=== PATIENT | female | born 1960 | race Caucasian/White ===

== ENCOUNTER 2016-10-13 17:43 | Emergency (ER) | payer OTHER ==
[~2016-10-13] VITALS: Ht 160 cm; Wt 114.8 kg
--- NOTE | 2016-10-13 17:55 | ED HEADACHE COMPLAINT ---
History of Present Illness General Chief Complaint: Headache Stated Complaint: MANN Source: patient, EMS Exam Limitations: no limitations Vital Signs & Intake/Output Vital Signs & Intake/Output Vital Signs Date Time Temp Pulse Resp B/P B/P Pulse O2 O2 Flow FiO2 Mean Ox Delivery Rate 10/13 2013 98.6 74 20 136/64 96 Nasal 2.0L Cannula 10/13 1900 78 139/76 10/13 1800 94 Room Air 10/13 1744 98.8 90 18 119/75 96 Room Air Allergies Coded Allergies: No Known Allergies (10/13/16) Reconcile Medications Amoxicillin/Potassium Clav (Augmentin 875-125 Tablet) 875 MG-125 MG TABLET 1 TAB PO BID INFECTION Amoxicillin/Potassium Clav (Augmentin 875-125 Tablet) 875 MG-125 MG TABLET 1 TAB PO BID INFECTION Carbamazepine 100 MG TAB.CHEW 1 TAB PO BID TIC DISORDER TAKE TWICE A DAY AND INCREASE SLOWLY BY 100 UNTIL DOSE OF 400 TWICE A DAY Carbamazepine 100 MG TAB.CHEW 1 TAB PO BID TRIGEMMINAL NEURALGIA START 100 MG TWICE A DAY INCREASE BY 100 EVERY FEW DAYS UNTIL YOU REACH 400 MG TWICE A DAY Diazepam (Valium) 5 MG TABLET 1 TAB PO BIDP PRN SPASM DO NOT DRIVE WITH THIS MEDICATION Lisinopril 5 MG TABLET 1 TAB PO DAILY ESSENTIAL TREMORS (Reported) Metformin HCl 500 MG TABLET 1 TAB PO DAILY MILD DM (Reported) Triage Note: 55 Y/O FEMALE COMES FROM HOME WITH C/O MANN AND STABBING (ICE PICK) PAIN TO RT EYE RAD TO BACK OF HEAD LASTING FOR ABOUT 30SEC TO A MINUTE. PT STS SHE HAD A SIMILAR EPISODE ABOUT LAST NOVEMBER AND SINCE TUESDAY SHE HAS BEEN EXPERIENCING INTERMITTENT SHARP STABBING PAIN, NO OTHER COMPLAINTS AND MD PRIMO AT BEDSIDE TO [facility] PT Triage Nurses Notes Reviewed? yes Onset: Abrupt Duration: SINCE 4 PM Timing: multiple episodes today Quality/Severity: severe, sharp Severity Numbers: 10 Head Injury Location: RIGHT FRONTAL No Modifying Factors: none HPI: This is a 55 year old female who presents via EMS from home for severe, sharp, episodic right sided eye pain radiating to the back of the neck. Symptoms started at 4 pm. She has had 9 episodes today. Symptoms last a few seconds and are very sharp and piercing like an ice pick through the eye. No visual changes or confusion. No difficulty speaking, swallowing. No extremity weakness. Past History Travel History Traveled to [place] past 21 day No Medical History Any Pertinent Medical History? see below for history Neurological: ESSENTIAL TREMOR Surgical History Surgical History: non-contributory Family History Hx Contributory? No Review of Systems Review of Systems Constitutional: Denies: chills, fever. Eyes: Reports: pain, photophobia. Ears, Nose, Throat, Mouth: Reports: mouth pain. Denies: ear pain, nose pain. Respiratory: Denies: cough, short of breath, sputum production. Cardiovascular: Denies: chest pain. Gastrointestinal/Abdominal: Denies: abdominal pain. Genitourinary: Denies: discharge, dysuria. Musculoskeletal: Denies: back pain. Skin: Reports: no symptoms. Neurological/Psychological: Reports: ataxia. Hematologic/Endocrine: Denies: bruising, bleeding. Endocrine: Reports: no symptoms. Immunologic/Allergic: Denies: splenectomy. All Other Systems: Reviewed and Negative Physical Exam Physical Exam General Appearance: well developed/nourished, alert, awake Head: atraumatic, normal appearance Eyes: Bilateral: normal appearance, PERRL, EOMI. Ears, Nose, Throat: normal pharynx, normal ENT inspection, hearing grossly normal Neck: normal inspection, supple, full range of motion Respiratory: normal breath sounds, chest non-tender, no respiratory distress Cardiovascular: regular rate/rhythm Gastrointestinal: soft, non-tender, obese Back: normal inspection, normal range of motion Extremities: normal inspection, normal range of motion, no edema Psychiatric: awake, alert, oriented x 3 Cranial Nerves: normal hearing, normal speech, PERRL Coordination/Gait: normal finger to nose Motor/Sensory: no motor/sensory deficits Skin: intact, normal color, warm/dry Core Measures Severe Sepsis Present: No Septic Shock Present: No Progress Differential Diagnosis: cluster MANN, IC mass/tumor, intracranial Hem., subarach. Hem., temporal arteritis, TRIGEMMINAL NEURALGIA Plan of Care: Orders Procedure Date/time Status PARTIAL THROMBOPLASTIN TIME 10/13 1752 Complete PROTHROMBIN TIME 10/13 1752 Complete COMPREHENSIVE METABOLIC PANEL 10/13 1752 Complete CBC WITHOUT DIFFERENTIAL 10/13 1752 Complete EKG 10/13 1752 Active Laboratory Tests 10/13/16 1824: Anion Gap 10, Estimated GFR > 60, BUN/Creatinine Ratio 20.0, Glucose 154 H, Calcium 9.6, Total Bilirubin 0.4, AST 20, ALT 32, Alkaline Phosphatase 72, Total Protein 7.7, Albumin 4.2, Globulin 3.5, Albumin/Globulin Ratio 1.2, PT 10.2, INR 0.97, APTT 25, CBC w Diff NO MAN DIFF REQ, RBC 4.83, MCV 94.2, MCH 31.9 H, RDW 14.2, MPV 7.5, Gran % 62.6, Lymphocytes % 26.1, Monocytes % 6.9, Eosinophils % 3.6, Basophils % 0.8, Absolute Granulocytes 5.5, Absolute Lymphocytes 2.3, Absolute Monocytes 0.6, Absolute Eosinophils 0.3, Absolute Basophils 0.1, PUBS MCHC 33.9 after iv morphine and valium, patient only had a few episodes and then they stopped. Work up including head ct angiogram is negative for aneurysm/mass/ bleed. It does however show extensive sinus disease on the left side with dental disease. It is on the opposite side but may also be contributing. Abx prescribed as well as carbamazepine. Dental and neuro follow up given. (PRIMO JAMA,LISSETTE) Diagnostic Imaging: Viewed by Me: CT Scan. Discussed w/RAD: CT Scan. Radiology Impression: PATIENT: DANIELA PATRICIO PRESENT AGE: 55 PATIENT ACCOUNT NO: [id number] : 59 LOCATION: [facility] ORDERING PHYSICIAN: LISSETTE TILLMAN MD SERVICE DATE: 10/13/16 EXAM TYPE: CAT - CT HEAD ANGIOGRAM EXAMINATION: CT ANGIOGRAM HEAD CLINICAL INFORMATION: Severe episodic right-sided headache. COMPARISON: None available. TECHNIQUE: Test bolus sequences followed by intravenous administration 95 mL of Optiray 350 intravenous contrast. Helical imaging was performed in the axial plane from the mediastinum to the skull vertex. Delayed postcontrast imaging of the head was also performed. The data was processed at the interventional radiology technologist's workstation for generation of MIP sequences. Three-dimensional volume rendered reformatted images were also generated at an offline 3-D workstation. FINDINGS: CT HEAD: There is no pathologic intracranial enhancement. There is no intracranial hemorrhage on the noncontrast series. There is no hydrocephalus, extra-axial surface collection, midline shift, or other herniation pattern. Perales to white matter differentiation is diffusely maintained without evidence of an evolved acute territorial infarct. The basilar cisterns are preserved. No significant soft tissue abnormality. No acute osseous abnormality. The left maxillary sinus is nearly completely opacified. Mild mucosal thickening within the inferior right maxillary sinus. Trace fluid level within the right sphenoid sinus. The ethmoid air cells are moderately opacified bilaterally. The hypoplastic left frontal sinus is completely opacified. There is mild mucosal thickening within the inferior right frontal sinus. There is significant periapical lucency surrounding the palatal root of the left first maxillary molar that is associated with a small focus of dehiscence along the left maxillary sinus floor , predisposing to odontogenic sinusitis. Elongated styloid processes bilaterally that can be correlated for clinical signs of [place] syndrome. CTA HEAD: The anterior and posterior intracranial arterial circulations are normal in caliber with no significant arterial stenoses and no acute arterial occlusions. No aneurysms are appreciated. The superficial and deep venous systems remain widely patent. IMPRESSION: - There is pansinus disease including complete opacification of the left maxillary sinus. There is significant periapical lucency surrounding the palatal root of the left first maxillary molar that is associated with a small focus of dehiscence along the left maxillary sinus floor, predisposing to odontogenic sinusitis. Recommend dental consultation and correlation for clinical signs of acute sinusitis given the extent of sinus disease. - No acute intracranial findings. Normal CTA of the head. - Elongated styloid processes bilaterally that can be correlated for clinical signs of [place] syndrome. DICTATED BY: TERRI PATEL MD DATE/TIME DICTATED:10/13/161933 SECURITY SYSTEM INSTALLER:LISETTE DATE/TIME TRANSCRIBED:10/13/161933 CONFIDENTIAL, DO NOT COPY WITHOUT APPROPRIATE AUTHORIZATION. <Electronically signed in Other Vendor System> SIGNED BY: TERRI PATEL MD 10/13/161957 Departure Departure Time of Disposition: 2039 Disposition: HOME OR SELF CARE Condition: Stable Clinical Impression Primary Impression: Sinusitis Secondary Impressions: Tic douloureux Referrals: JASSON JAMA,MELVI HAWKINS MD,KAMERON Padgett Additional Instructions: TAKE THE AUGMENTIN DIRECTED. START THE CARBAMAZEPINE DIRECTED AND FOLLOW UP WITH YOUR DOCTOR AND WITH THE NEUROLOGIST LISTED. RETURN TO THE ER FOR ANY WORSENING SYMPTOMS. Departure Forms: Customer Survey General Discharge Information Prescriptions: Current Visit Scripts Amoxicillin/Potassium Clav (Augmentin 875-125 Tablet) 1 TAB PO BID #20 TAB Carbamazepine 1 TAB PO BID #60 TAB TAKE TWICE A DAY AND INCREASE SLOWLY BY 100 UNTIL DOSE OF 400 TWICE A DAY Amoxicillin/Potassium Clav (Augmentin 875-125 Tablet) 1 TAB PO BID #20 TAB Carbamazepine 1 TAB PO BID #60 TAB START 100 MG TWICE A DAY INCREASE BY 100 EVERY FEW DAYS UNTIL YOU REACH 400 MG TWICE A DAY Diazepam (Valium) 1 TAB PO BIDP PRN SPASM #[address] WITH THIS MEDICATION
[2016-10-13] MEDS ORDERED: METFORMIN HCL500 M3 PO (18:03)
[2016-10-13] MEDS ORDERED: LISINOPRIL5 M1 PO (18:04)
[2016-10-13 18:51] LABS: ABSOLUTE BASOPHIL COUNT 0.1 /CUMM (0.0-0.2); ABSOLUTE EOSINOPHIL COUNT 0.3 /CUMM (0.0-0.7); ABSOLUTE GRANULOCYTE CT 5.5 /CUMM (1.4-6.5); ABSOLUTE LYMPH COUNT 2.3 /CUMM (1.2-3.4); ABSOLUTE MONOCYTE COUNT 0.6 /CUMM (0.10-0.60); BASOPHIL % 0.8 % (0.0-2.0); EOSINOPHIL % 3.6 % (0-5); GRANULOCYTE % 62.6 % (42.2-75.2); HEMATOCRIT 45.5 % (37-47); MEAN CORPUSCULAR HGB 31.9 PG (27.0-31.0); MEAN CORPUSCULAR HGB CONC 33.9 G/DL (33.0-37.0); MEAN CORPUSCULAR VOLUME 94.2 FL (81.0-99.0); MEAN PLATELET VOLUME 7.5 FL (7.4-10.4); PLATELET COUNT 351 /CUMM (130-400); RBC DISTRIBUTION WIDTH 14.2 % (11.5-14.5); RED BLOOD CELL CT 4.83 /CUMM (4.20-5.40); WHITE BLOOD CELL COUNT 8.8 /CUMM (4.8-10.8)
[2016-10-13 18:53] LABS: PT 10.2 SEC (9.4-12.5); PTT 25 SEC (25-37)
--- NOTE | 2016-10-13 19:58 | CT SCAN REPORT ---
EXAMINATION: CT ANGIOGRAM HEAD CLINICAL INFORMATION: Severe episodic right-sided headache. COMPARISON: None available. TECHNIQUE: Test bolus sequences followed by intravenous administration 95 mL of Optiray 350 intravenous contrast. Helical imaging was performed in the axial plane from the mediastinum to the skull vertex. Delayed postcontrast imaging of the head was also performed. The data was processed at the principal technologist's workstation for generation of MIP sequences. Three-dimensional volume rendered reformatted images were also generated at an offline 3-D workstation. FINDINGS: CT HEAD: There is no pathologic intracranial enhancement. There is no intracranial hemorrhage on the noncontrast series. There is no hydrocephalus, extra-axial surface collection, midline shift, or other herniation pattern. Perales to white matter differentiation is diffusely maintained without evidence of an evolved acute territorial infarct. The basilar cisterns are preserved. No significant soft tissue abnormality. No acute osseous abnormality. The left maxillary sinus is nearly completely opacified. Mild mucosal thickening within the inferior right maxillary sinus. Trace fluid level within the right sphenoid sinus. The ethmoid air cells are moderately opacified bilaterally. The hypoplastic left frontal sinus is completely opacified. There is mild mucosal thickening within the inferior right frontal sinus. There is significant periapical lucency surrounding the palatal root of the left first maxillary molar that is associated with a small focus of dehiscence along the left maxillary sinus floor, predisposing to odontogenic sinusitis. Elongated styloid processes bilaterally that can be correlated for clinical signs of [place] syndrome. CTA HEAD: The anterior and posterior intracranial arterial circulations are normal in caliber with no significant arterial stenoses and no acute arterial occlusions. No aneurysms are appreciated. The superficial and deep venous systems remain widely patent. IMPRESSION: - There is pansinus disease including complete opacification of the left maxillary sinus. There is significant periapical lucency surrounding the palatal root of the left first maxillary molar that is associated with a small focus of dehiscence along the left maxillary sinus floor, predisposing to odontogenic sinusitis. Recommend dental consultation and correlation for clinical signs of acute sinusitis given the extent of sinus disease. - No acute intracranial findings. Normal CTA of the head. - Elongated styloid processes bilaterally that can be correlated for clinical signs of [place] syndrome.
[2016-10-13 20:14] VITALS: BP 136/64
[2016-10-13] MEDS ORDERED: AUGMENTIN 875-1 EACH PO ×2 (20:21→20:43)
[2016-10-13] MEDS ORDERED: CARBAMAZEPINE100 M2 PO ×2 (20:21→20:43)
[2016-10-13] MEDS ORDERED: VALIUM5 M2 PO (20:43)
== END 2016-10-13 20:58 ==
LOC: ERH 17:43
PROVIDERS: Emergency Medicine
DX: J32.9 Chronic sinusitis, unspecified (principal)
CPT/HCPCS: 93005; 93010; 96374; 96375; J3360